=== PATIENT | female | born 1960 | race Native Hawaiian/Other Pacific Islander ===

== ENCOUNTER 2019-06-19 11:38 | Day surgery (SDC) | payer OTHER | END 2019-06-19 15:02 | disposition home or self-care (01) | LOC: OR 11:38 | PROC: 3E0T3BZ Introduction of Anesthetic Agent into Peripheral Nerves and Plexi, Percutaneous Approach (ICD-10-PCS; principal; 2019-06-19) | PROC: 3E0T33Z Introduction of Anti-inflammatory into Peripheral Nerves and Plexi, Percutaneous Approach (ICD-10-PCS; 2019-06-19) | PROC: BR16YZZ Fluoroscopy of Lumbar Facet Joint(s) using Other Contrast (ICD-10-PCS; 2019-06-19) | DX: M47.816 Spondylosis without myelopathy or radiculopathy, lumbar region (principal) | CPT/HCPCS: J1100; J2001 ==

== ENCOUNTER 2019-07-10 09:48 | Day surgery (SDC) | payer OTHER ==
[~2019-07-10] VITALS: Ht 30.5 cm; Wt 0.5 kg
== END 2019-07-10 11:35 | disposition home or self-care (01) ==
LOC: OR 09:48
PROC: 3E0T3BZ Introduction of Anesthetic Agent into Peripheral Nerves and Plexi, Percutaneous Approach (ICD-10-PCS; principal; 2019-07-10)
PROC: 3E0T33Z Introduction of Anti-inflammatory into Peripheral Nerves and Plexi, Percutaneous Approach (ICD-10-PCS; 2019-07-10)
PROC: BR16YZZ Fluoroscopy of Lumbar Facet Joint(s) using Other Contrast (ICD-10-PCS; 2019-07-10)
DX: M47.816 Spondylosis without myelopathy or radiculopathy, lumbar region (principal)
CPT/HCPCS: J1100; J2001

== ENCOUNTER 2019-09-11 18:03 | Outpatient (CLI) | payer OTHER | END 2019-09-11 20:06 | disposition home or self-care (01) | LOC: LABW 18:03 | DX: E11.9 Type 2 diabetes mellitus without complications (principal) | CPT/HCPCS: 83036 ==

== ENCOUNTER 2019-09-25 10:05 | Day surgery (SDC) | payer OTHER | END 2019-09-25 13:07 | disposition home or self-care (01) | LOC: OR 10:05 | PROC: 3E0T3TZ Introduction of Destructive Agent into Peripheral Nerves and Plexi, Percutaneous Approach (ICD-10-PCS; principal; 2019-09-25) | PROC: BR16YZZ Fluoroscopy of Lumbar Facet Joint(s) using Other Contrast (ICD-10-PCS; 2019-09-25) | DX: M47.816 Spondylosis without myelopathy or radiculopathy, lumbar region (principal) | CPT/HCPCS: J2001 ==

== ENCOUNTER 2019-11-06 08:25 | Day surgery (SDC) | payer OTHER | END 2019-11-06 10:07 | disposition home or self-care (01) | LOC: OR 08:25 | PROC: 3E0T3TZ Introduction of Destructive Agent into Peripheral Nerves and Plexi, Percutaneous Approach (ICD-10-PCS; principal; 2019-11-06) | PROC: BR16YZZ Fluoroscopy of Lumbar Facet Joint(s) using Other Contrast (ICD-10-PCS; 2019-11-06) | DX: M47.816 Spondylosis without myelopathy or radiculopathy, lumbar region (principal) | CPT/HCPCS: J2001 ==

== ENCOUNTER 2020-06-17 08:11 | Day surgery (SDC) | payer OTHER ==
[~2020-06-17] VITALS: Ht 30.5 cm; Wt 0.5 kg
[2020-06-17 15:43] LABS: PLATELET COUNT 242 K/uL (152-353)
== END 2020-06-17 09:45 | disposition home or self-care (01) ==
LOC: LAB 08:11 → OR 08:11
PROVIDERS: Pain Medicine Interventional Pain Medicine
PROC: 3E0T3BZ Introduction of Anesthetic Agent into Peripheral Nerves and Plexi, Percutaneous Approach (ICD-10-PCS; principal; 2020-06-17)
PROC: 3E0T33Z Introduction of Anti-inflammatory into Peripheral Nerves and Plexi, Percutaneous Approach (ICD-10-PCS; 2020-06-17)
DX: G90.523 Complex regional pain syndrome I of lower limb, bilateral (principal); M79.605 Pain in left leg; M79.604 Pain in right leg
CPT/HCPCS: 80053; 80061; 82306; 83036; 84439; 84443; 85027; J1020; J2001

== ENCOUNTER 2021-06-12 14:02 | Outpatient (CLI) | payer OTHER | END 2021-06-12 19:07 | disposition home or self-care (01) | LOC: RAD 14:02 | PROVIDERS: ATTEND Orthopaedic Surgery | DX: M25.521 Pain in right elbow (principal); M25.522 Pain in left elbow ==